=== PATIENT | male | born 1950 | race Caucasian/White ===

== ENCOUNTER 2018-05-28 16:17 | Observation (INO) | payer MEDICARE, BC ==
[2018-05-28] MEDS ORDERED: HYDROmorphone 1 MG/ML Syringe IM ONE (17:21)
--- NOTE | 2018-05-28 17:28 | EDM.PDOC ---
ED HPI GENERAL MEDICAL PROBLEM - General Chief Complaint: Lower Extremity Injury/Pain Stated Complaint: PAIN IN LEFT LEG Time Seen by Provider: 05/28/18 16:30 Source of Information: Reports: Patient, Family History Limitations: Reports: No Limitations - History of Present Illness INITIAL COMMENTS - FREE TEXT/NARRATIVE: 67-year-old male was water skiing when he injured the proximal aspect of his posterior right leg. Onset: Sudden Duration: Hour(s): (Within the last 2 hours) Location: Reports: Lower Extremity, Right Quality: Reports: Sharp, Stabbing Severity: Severe Worsens with: Reports: Other (Weightbearing), Movement Associated Symptoms: Reports: No Other Symptoms Right Leg Pain Score (Numeric/FACES): 2 - Related Data Allergies Allergy/AdvReac Type Severity Reaction Status Date / Time No Known Allergies Allergy Verified 11/04/15 07:33 Home Meds: Home Meds Cholecalciferol (Vitamin D3) [Vitamin D] 1,000 units PO DAILY 06/30/15 [History] Fish Oil/[employer]-3 Fatty Acids [Fish Oil 1,000 MG] 1,000 mg PO DAILY 06/30/15 [ History] Docusate Sodium [Colace] 100 mg PO DAILY 05/28/18 [History] Past Medical History HEENT History: Reports: Head, Impaired Vision, Other (See Below) Other HEENT History: lump off head broken nose Cardiovascular History: Reports: Blood Clots/VTE/DVT Other Cardiovascular History: 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 Gastrointestinal History: Reports: Chronic Constipation Musculoskeletal History: Reports: Fracture Hematologic History: Reports: Anticoagulation Therapy, Blood Transfusion(s) Other Hematologic History: blood tansfusion after an accident Oncologic (Cancer) History: Reports: Other (See Below) Other Oncologic History: tonsil Dermatologic History: Reports: None - Infectious Disease History Infectious Disease History: Reports: Chicken Pox, Mumps, Other (See Below) Other Infectious Disease History: tick borne disease x2 staff infection left [id number] - Past Surgical History HEENT Surgical History: Reports: Adenoidectomy, Tonsillectomy, Other (See Below) Cardiovascular Surgical History: Reports: None, Other (See Below) GI Surgical History: Reports: Colonoscopy, Hernia, Inguinal Male Surgical History: Reports: Vasectomy Musculoskeletal Surgical History: Reports: None Dermatological Surgical History: Reports: Plastic Surgical Reconstruction/Repair Social & Family History - Tobacco Use Smoking Status *Q: Never Smoker - Caffeine Use Caffeine Use: Reports: Coffee - Recreational Drug Use Recreational Drug Use: No Review of Systems - Review of Systems Review Of Systems: See Below Constitutional: Denies: Fever Respiratory: Denies: Shortness of Breath Cardiovascular: Denies: Chest Pain GI/Abdominal: Denies: Abdominal Pain Skin: Denies: Bruising Neurological: Denies: Paresthesia Psychiatric: Reports: No Symptoms ED EXAM, GENERAL - Physical Exam Exam: See Below Exam Limited By: No Limitations General Appearance: Alert, Mild Distress Respiratory/Chest: No Respiratory Distress, Lungs Clear Extremities: Other (Right lower extremity exam is abnormal. He has swelling, firmness and fullness in the proximal aspect of the right posterior hamstring area. Ligaments are intact behind the knee. No ecchymosis or bruising to this point. He is able to extend the knee without difficulty, he has intense pain with trying to flex the right leg against resistance.) Course - Vital Signs Last Recorded V/S: Last Vital Signs Temp 98.2 F 05/29/18 10:44 Pulse 54 L 05/29/18 10:44 Resp 17 05/29/18 10:44 BP 110/55 L 05/29/18 10:44 Pulse Ox 98 05/29/18 10:44 - Orders/Labs/Meds Orders: Medication Orders Cyclobenzaprine HCl (Flexeril) 10 mg PO TID PRN PRN Reason: muscle spasms Last Admin: 05/29/18 08:55 Dose: 10 mg Docusate Sodium (Colace) 100 mg PO BID PRN PRN Reason: Constipation Enoxaparin Sodium (Lovenox) 40 mg SUBCUT BEDTIME LUIS Sodium Chloride (Normal Saline) 1,000 mls @ 125 mls/hr IV ASDIRECTED LUIS Last Admin: 05/29/18 05:28 Dose: 125 mls/hr Infusion: 05/29/18 05:01 Dose: 125 mls/hr Admin: 05/28/18 21:01 Dose: 125 mls/hr Lorazepam (Ativan) 1 mg IV Q6H PRN PRN Reason: Nausea/Vomiting Melatonin (Melatonin) 6 mg PO BEDTIME PRN PRN Reason: Insomnia Morphine Sulfate (Morphine Appian Bpm Developer 150 Mg In 30 Ml) 0 mg IV ASDIRECTED PRN; Protocol PRN Reason: Pain Last Admin: 05/28/18 20:59 Dose: 150 mg Naloxone HCl (Narcan) 0.4 mg IVPUSH Q2M PRN PRN Reason: Respiratory Distress Ondansetron HCl (Zofran Odt) 4 mg PO Q6H PRN PRN Reason: Nausea able to take PO Ondansetron HCl (Zofran) 4 mg IV Q4H PRN PRN Reason: Nausea/Vomiting Trolamine Salicylate (Aspercreme 10%) 0 gm TOP Q1H PRN PRN Reason: Pain Meds: Medications Generic Name Dose Route Start Last Admin Trade Name Freq PRN Reason Stop Dose Admin Cyclobenzaprine HCl 10 mg 05/28/18 20:50 05/29/18 08:55 Flexeril PO 10 mg TID PRN Administration muscle spasms Docusate Sodium 100 mg 05/28/18 20:09 Colace PO BID PRN Constipation Enoxaparin Sodium 40 mg 05/29/18 21:00 Lovenox SUBCUT BEDTIME LUIS Sodium Chloride 1,000 mls @ 125 mls/hr 05/28/18 20:09 05/29/18 05:28 Normal Saline IV 125 mls/hr ASDIRECTED LUIS Administration Lorazepam 1 mg 05/28/18 20:09 Ativan IV Q6H PRN Nausea/Vomiting Melatonin 6 mg 05/28/18 20:09 Melatonin PO BEDTIME PRN Insomnia Morphine Sulfate 0 mg 05/28/18 20:09 05/28/18 20:59 Morphine Appian Bpm Developer 150 Mg In 30 Ml IV 150 mg ASDIRECTED PRN Administration Pain Protocol Naloxone HCl 0.4 mg 05/28/18 20:09 Narcan IVPUSH Q2M PRN Respiratory Distress Ondansetron HCl 4 mg 05/28/18 20:09 Zofran Odt PO Q6H PRN Nausea able to take PO Ondansetron HCl 4 mg 05/28/18 20:09 Zofran IV Q4H PRN Nausea/Vomiting Trolamine Salicylate 0 gm 05/29/18 07:45 Aspercreme 10% TOP Q1H PRN Pain Discontinued Medications Generic Name Dose Route Start Last Admin Trade Name Freq PRN Reason Stop Dose Admin Enoxaparin Sodium 40 mg 05/28/18 22:00 05/28/18 22:05 Lovenox SUBCUT 40 mg DAILY LUIS Administration Hydromorphone HCl 1 mg 05/28/18 17:21 05/28/18 17:25 Dilaudid IM 05/28/18 17:22 1 mg ONETIME ONE Administration - Re-Assessments/Exams Free Text/Narrative Re-Assessment/Exam: 05/28/18 18:09 Patient has a classic proximal hamstring pull or strain/tear. Six-inch Jarrett wrap were applied to the upper leg and he was given 1 mg of Dilaudid IM. 05/28/18 18:19 Symptoms improved somewhat after the Dilaudid. He was still having significant discomfort, especially when trying to bear weight or sit. He wanted to try to go home but will follow up with Prem Buenrostro on . He was given 10 Percocet to use for extra pain control, and 15 Flexeril for muscle relaxation. Continue with wrapping and ice and gradually increasing activity as tolerated. 05/28/18 18:50 Patient attempted to leave but had a significant vasovagal episode when he tried to stand. He simply was unable to leave the bed and get in a wheelchair or get into the car. He'll have to be admitted for pain control and orthopedic and physical therapy consultation over the next 24 hours. Departure - Departure Time of Disposition: 20:09 Disposition: Admitted As Inpatient 67 Condition: Fair Clinical Impression: Hamstring sprain - Discharge Information
--- NOTE | 2018-05-28 18:56 | PCM.HP ---
H&P History of Present Illness - General Date of Service: 05/28/18 Source of Information: Patient, Family ( Rosamaria) History Limitations: Reports: No Limitations - History of Present Illness Initial Comments - Free Text/Narative: 67-year-old male was water skiing when he injured the proximal aspect of his posterior right leg. Onset: Sudden 05/28/18 18:09 Patient has a classic proximal hamstring pull or strain/tear. Six-inch Jarrett wrap were applied to the upper leg and he was given 1 mg of Dilaudid IM. 05/28/18 18:19 Symptoms improved somewhat after the Dilaudid. He was still having significant discomfort, especially when trying to bear weight or sit. He wanted to try to go home but will follow up with Prem Buenrostro on . He was given 10 Percocet to use for extra pain control, and 15 Flexeril for muscle relaxation. Continue with wrapping and ice and gradually increasing activity as tolerated. 05/28/18 18:50 Patient attempted to leave but had a significant vasovagal episode when he tried to stand. He simply was unable to leave the bed and get in a wheelchair or get into the car. He'll have to be admitted for pain control and orthopedic and physical therapy consultation over the next 24 hours. Clinical Impression: Hamstring sprain - Onset of Symptoms: Reports: Sudden Duration of Symptoms: Reports: Hour(s): Location: Reports: Lower Extremity, Right Quality: Reports: Sharp, Stabbing Severity: Severe Improves with: Reports: Immobilization, Medication Worsens with: Reports: Movement Context: Reports: Trauma (fall while trying to water skii) Associated Symptoms: Reports: No Other Symptoms Right Leg Pain Score (Numeric/FACES): 2 - Related Data Allergies/Adverse Reactions: Allergies Allergy/AdvReac Type Severity Reaction Status Date / Time No Known Allergies Allergy Verified 11/04/15 07:33 Home Medications: Home Meds Cholecalciferol (Vitamin D3) [Vitamin D] 1,000 units PO DAILY 06/30/15 [History] Fish Oil/[place]-3 Fatty Acids [Fish Oil 1,000 MG] 1,000 mg PO DAILY 06/30/15 [ History] Docusate Sodium [Colace] 100 mg PO DAILY 05/28/18 [History] Past Medical History HEENT History: Reports: Head, Impaired Vision, Other (See Below) Other HEENT History: lump off head broken nose Cardiovascular History: Reports: Blood Clots/VTE/DVT Other Cardiovascular History: 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 Gastrointestinal History: Reports: Chronic Constipation Musculoskeletal History: Reports: Fracture Hematologic History: Reports: Anticoagulation Therapy, Blood Transfusion(s) Other Hematologic History: blood tansfusion after an accident Oncologic (Cancer) History: Reports: Other (See Below) Other Oncologic History: tonsil Dermatologic History: Reports: None - Infectious Disease History Infectious Disease History: Reports: Chicken Pox, Mumps, Other (See Below) Other Infectious Disease History: tick borne disease x2 staff infection left [id number] - Past Surgical History HEENT Surgical History: Reports: Adenoidectomy, Tonsillectomy, Other (See Below) Cardiovascular Surgical History: Reports: None, Other (See Below) GI Surgical History: Reports: Colonoscopy, Hernia, Inguinal Male Surgical History: Reports: Vasectomy Musculoskeletal Surgical History: Reports: None Dermatological Surgical History: Reports: Plastic Surgical Reconstruction/Repair Social & Family History - Tobacco Use Smoking Status *Q: Never Smoker - Caffeine Use Caffeine Use: Reports: Coffee - Recreational Drug Use Recreational Drug Use: No - Living Situation & Occupation Living situation: Reports: (lives with Rosamaria [address] [place], [place].) H&P Review of Systems - Review of Systems: Review Of Systems: See Below General: Reports: No Symptoms HEENT: Reports: No Symptoms, Other (hx of throat cancer 3 years ago.) Pulmonary: Reports: No Symptoms Cardiovascular: Reports: No Symptoms Gastrointestinal: Reports: No Symptoms Genitourinary: Reports: No Symptoms Musculoskeletal: Reports: No Symptoms Skin: Reports: No Symptoms Psychiatric: Reports: No Symptoms Neurological: Reports: No Symptoms Hematologic/Lymphatic: Reports: Other (hx of DVT in right legs 6 years ago. off coumadin x 3 years.) Immunologic: Reports: No Symptoms Exam - Exam Exam: See Below - Vital Signs Vital Signs: Last Vital Signs Temp 36.0 C 05/28/18 16:29 Pulse 72 05/28/18 18:25 Resp 16 05/28/18 16:29 BP 69/33 L 05/28/18 18:25 Pulse Ox 98 05/28/18 18:25 Weight: 73.936 kg - Exam General: Alert, Oriented, Cooperative HEENT: PERRLA, Conjunctiva Clear, EACs Clear, EOMI Neck: Supple, Trachea Midline, Other (left lateral neck with moderate scarring. deformity noted to left upper neck.) Lungs: Clear to Auscultation, Normal Respiratory Effort Cardiovascular: Regular Rate, Regular Rhythm, Normal S1, Normal S2 GI/Abdominal Exam: Normal Bowel Sounds, Soft, Non-Tender, Pelvis Stable (Male) Exam: Deferred Rectal (Males) Exam: Deferred Back Exam: Normal Inspection, Full Range of Motion Extremities: Leg Pain (right leg with jarrett wrap from groin to knee.), Other ( Extremities: Other (Right lower extremity exam is abnormal. He has swelling, firmness and fullness in the proximal aspect of the right posterior hamstring area. Ligaments are intact behind the knee. No ecchymosis or bruising to this point. He is able to extend the knee without difficulty, he has intense pain with trying to flex the right leg against resistance.)) Skin: Warm, Dry, Intact Neurological: Normal Speech Neuro Extensive - Mental Status: Alert, Oriented x3, Normal Mood/Affect, Normal Cognition, Memory Intact Psychiatric: Alert, Normal Affect, Normal Mood - Problem List (1) Hamstring sprain SNOMED Code(s): 158805504 ICD Code: S73.199A - OTHER SPRAIN OF UNSPECIFIED HIP, INITIAL ENCOUNTER Status: Acute Priority: High Current Visit: Yes Problem List Initiated/Reviewed/Updated: Yes Orders Last 24hrs: Active Orders 24 hr Category Date Time Status DME for Discharge [COMM] Stat Ot 05/28/18 17:58 Ordered Assessment/Plan Comment:: ASSESSMENT / PLAN 67-year-old male was water skiing when he injured the proximal aspect of his posterior right leg. Patient has a classic proximal hamstring pull or strain/tear. Six-inch Jarrett wrap were applied to the upper leg and he was given 1 mg of Dilaudid IM. Symptoms improved somewhat after the Dilaudid. He was still having significant discomfort, especially when trying to bear weight or sit. He wanted to try to go home but will follow up with Prem Buenrostro on . He was given 10 Percocet to use for extra pain control, and 15 Flexeril for muscle relaxation. Continue with wrapping and ice and gradually increasing activity as tolerated. Patient attempted to leave but had a significant vasovagal episode when he tried to stand. He simply was unable to leave the bed and get in a wheelchair or get into the car. He'll have to be admitted for pain control and orthopedic and physical therapy consultation over the next 24 hours. Right Leg Injury; Hamstring sprain -Admit to [address] [place] [address] for further monitoring -Telemetry -IV fluids for rehydration LR at 125 mL per hour -Advise to notify nurses of any chest pain or other symptoms -Pain control, COLLARETTE SEPARATOR Morphine -crutches for ambulation Maintenance issues -Orders home meds: on hold -Nutrition: Regular diet -Perez catheter not indicated at this time -DVT: Lovenox 30mg subcut -GI Prophalaxis; Protonix 40mg daily -consult to PT -consult to OT -consult to Dr.Brennen Buenrostro CODE STATUS: Full Admission status: Admit to Observation -I expect this patient to stay less than 24 hours, not to exceed 96 hours for evaluation and management of this problem. Disposition: home with Primary care provider:Dr. Villeda and Dr. Quach Oncologist Hospitalist: Dr. Aguiar
[2018-05-28] MEDS ORDERED: Morphine PF 150 MG/30 ML PCA Syringe IV PRN (20:09)
[2018-05-28] MEDS ORDERED: Ondansetron 4 MG/2 ML SDV IV PRN (20:09)
[2018-05-28] MEDS ORDERED: Melatonin 3 MG Tab PO PRN (20:09)
[2018-05-28] MEDS ORDERED: Ondansetron 4 MG Tab.DIS PO PRN (20:09)
[2018-05-28] MEDS ORDERED: Naloxone 0.4 MG/ML SDV IVPUSH PRN (20:09)
[2018-05-28] MEDS ORDERED: Docusate Sodium 100 MG Cap PO PRN (20:09)
[2018-05-28] MEDS ORDERED: LORazepam 2 MG/ML SDV IV PRN (20:09)
[2018-05-28] MEDS ORDERED: Cyclobenzaprine 10 MG Tab PO PRN (20:50)
[2018-05-28] MEDS: Sodium Chloride 0.9% 1,000 ML IV SCH (21:01)
[2018-05-28] MEDS ORDERED: Enoxaparin 40 MG/0.4 ML Syringe SUBCUT SCH (22:00)
[2018-05-29] MEDS: Sodium Chloride 0.9% 1,000 ML IV SCH (05:28)
[2018-05-29] MEDS ORDERED: Trolamine Salicylate/Aloe Vera 10% Crm 85 GM Tube TOP PRN (07:45)
[2018-05-29] MEDS ORDERED: Enoxaparin 30 MG/0.3 ML Syringe SUBCUT SCH (09:00)
--- NOTE | 2018-05-29 09:05 | PCM.CONS ---
H&P History of Present Illness - General Date of Service: 05/29/18 Admit Problem/Dx: Admission Diagnosis/Problem Admission Diagnosis/Problem Right leg injury Source of Information: Patient History Limitations: Reports: No Limitations - History of Present Illness Onset of Symptoms: Reports: Sudden Duration of Symptoms: Reports: Day(s): Location: Reports: Lower Extremity, Right Quality: Reports: Ache, Burning, Dull, Stabbing, Throbbing Improves with: Reports: Movement Worsens with: Reports: Movement Associated Symptoms: Reports: No Other Symptoms Right Leg Pain Score (Numeric/FACES): 2 - Related Data Allergies/Adverse Reactions: Allergies Allergy/AdvReac Type Severity Reaction Status Date / Time No Known Allergies Allergy Verified 11/04/15 07:33 Home Medications: Home Meds Cholecalciferol (Vitamin D3) [Vitamin D] 1,000 units PO DAILY 06/30/15 [History] Fish Oil/[place]-3 Fatty Acids [Fish Oil 1,000 MG] 1,000 mg PO DAILY 06/30/15 [ History] Docusate Sodium [Colace] 100 mg PO DAILY 05/28/18 [History] Past Medical History HEENT History: Reports: Head, Impaired Vision, Other (See Below) Other HEENT History: lump off head broken nose Cardiovascular History: Reports: Blood Clots/VTE/DVT Other Cardiovascular History: 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 Gastrointestinal History: Reports: Chronic Constipation Musculoskeletal History: Reports: Fracture Hematologic History: Reports: Anticoagulation Therapy, Blood Transfusion(s) Other Hematologic History: blood tansfusion after an accident Oncologic (Cancer) History: Reports: Other (See Below) Other Oncologic History: tonsil Dermatologic History: Reports: None - Infectious Disease History Infectious Disease History: Reports: Chicken Pox, Mumps, Other (See Below) Other Infectious Disease History: tick borne disease x2 staff infection left [id number] - Past Surgical History HEENT Surgical History: Reports: Adenoidectomy, Tonsillectomy, Other (See Below) Cardiovascular Surgical History: Reports: None, Other (See Below) GI Surgical History: Reports: Colonoscopy, Hernia, Inguinal Male Surgical History: Reports: Vasectomy Musculoskeletal Surgical History: Reports: None Dermatological Surgical History: Reports: Plastic Surgical Reconstruction/Repair Social & Family History - Tobacco Use Smoking Status *Q: Never Smoker Second Hand Smoke Exposure: No - Caffeine Use Caffeine Use: Reports: Coffee Caffeine Use Comment: 3 cups per day - Recreational Drug Use Recreational Drug Use: No - Living Situation & Occupation Living situation: Reports: (lives with Rosamaria [place] [address] [place], [place].) H&P Review of Systems - Review of Systems: Review Of Systems: See Below General: Reports: No Symptoms HEENT: Reports: No Symptoms Pulmonary: Reports: No Symptoms Cardiovascular: Reports: No Symptoms Gastrointestinal: Reports: No Symptoms Genitourinary: Reports: No Symptoms Musculoskeletal: Reports: Leg Pain Skin: Reports: No Symptoms Psychiatric: Reports: No Symptoms Neurological: Reports: No Symptoms Hematologic/Lymphatic: Reports: No Symptoms Immunologic: Reports: No Symptoms Exam - Exam Exam: See Below - Vital Signs Vital Signs: Last Vital Signs Temp 98.0 F 05/29/18 02:25 Pulse 60 05/29/18 08:41 Resp 16 05/29/18 08:41 BP 117/88 05/29/18 08:41 Pulse Ox 97 05/29/18 08:41 Weight: 163 lb - Exam General: Oriented HEENT: PERRLA, Hearing Intact, Mucosa Moist & [place], Pupils Equal, Pupils Reactive Neck: Supple, Trachea Midline Lungs: Normal Respiratory Effort Extremities: Leg Pain, Limited Range of Motion Skin: Warm, Dry, Intact Neuro Extensive - Mental Status: Alert, Oriented x3, Normal Mood/Affect, Normal Cognition, Memory Intact Psychiatric: Alert, Normal Affect, Normal Mood - Patient Data Lab Results Last 24 hrs: Laboratory Results - last 24 hr 05/28/18 05/28/18 Range/Units 20:49 21:38 WBC 9.5 (4.5-11.0) K/uL RBC 4.16 L (4.30-5.90) M/uL Hgb 13.1 (12.0-15.0) g/dL Hct 37.2 L (40.0-54.0) % MCV 89 (80-98) fL MCH 32 H (27-31) pg MCHC 35 (32-36) % Plt Count 270 (150-400) K/uL Sodium 136 L (140-148) mmol/L Potassium 3.9 (3.6-5.2) mmol/L Chloride 102 (100-108) mmol/L Carbon Dioxide 26 (21-32) mmol/L Anion Gap 11.9 (5.0-14.0) mmol/L BUN 18 (7-18) mg/dL Creatinine 1.2 (0.8-1.3) mg/dL Est Cr Clr Drug Dosing 63.32 mL/min Estimated GFR (MDRD) > 60 (>60) Glucose 114 H (74-106) mg/dL Calcium 8.5 (8.5-10.1) mg/dL Total Bilirubin 0.6 (0.2-1.0) mg/dL AST 24 (15-37) U/L ALT 25 (12-78) U/L Alkaline Phosphatase 52 (46-116) U/L Total Protein 6.2 L (6.4-8.2) g/dL Albumin 3.3 L (3.4-5.0) g/dL Globulin 2.9 (2.3-3.5) g/dL Albumin/Globulin Ratio 1.1 L (1.2-2.2) Result Diagrams: 05/28/18 21:38 05/28/18 20:49 Consult PN Assessment/Plan POD#: 0 Procedures: Procedures ASSAY OF CREATININE (05/20/15) BIOPSY/REMOVAL LYMPH NODES (07/02/15) CT SOFT TISSUE NECK W/DYE (05/20/15) DIAGNOSTIC COLONOSCOPY (11/04/15) ROUTINE VENIPUNCTURE (05/20/15) TISSUE EXAM BY PATHOLOGIST (07/02/15) US EXAM OF HEAD AND NECK (05/14/15) (1) Hamstring sprain SNOMED Code(s): 551337912 Code(s): S73.199A - OTHER SPRAIN OF UNSPECIFIED HIP, INITIAL ENCOUNTER Priority: High Current Visit: Yes Problem List Initiated/Reviewed/Updated: Yes My Orders Last 24 Hours: My Active Orders 05/29/18 07:45 Trolamine Salicylate/Aloe Vera [Aspercreme 10%] 0 gm TOP Q1H PRN Plan: assessment:right hamstring sprain Plan: I advised the patient that this is usually a tincture of time treatment. I do not recommend proximal hamstrings reconstruction with anchors. I did say that that is a possibility but it is usually performed in younger athletes. I advised him that this may take up to 4 months to heal. I advised topicals and using [id number] sleep aids for night. He is very uncomfortable sitting. I advised him that he may need to be in a recliner for some time. I've advised him that walking, elliptical, and swimming are all options. He'll probably not be able to swim for 1-2 months. I advised him that I be happy to take care of him if he had an episode with increased pain and could call my office. I will see him on an as-needed basis.
[2018-05-29 10:46] VITALS: BP 110/55
--- NOTE | 2018-05-29 12:39 | PCM.DCSUM1 ---
Discharge Summary - Hospital Course Brief History: Mr. Hernández is a 67-year-old gentleman who was admitted through the emergency department with severe pain of his right posterior thigh thought secondary to a partial tear of his hamstring. Diagnosis: Stroke: No - Discharge Data Discharge Date: 05/29/18 Discharge Disposition: Home, Self-Care 01 Condition: Fair - Discharge Diagnosis/Problem(s) (1) Tear of right hamstring SNOMED Code(s): 333857407 ICD Code: S76.311A - STRAIN MSL/FASC/TND POST GRP AT THI LEV, RIGHT THIGH, INIT Status: Acute Current Visit: Yes - Patient Summary/Data Consults: Consultations 05/28/18 20:09 Consult to Physician [CONS] Routine Consulting Provider: Prem Buenrostro Call Completed to Consulting Physician: No Reason for Consult: right hamstring injury OT Evaluation and Treatment [CONS] Routine Please Evaluate and Treat. OT Reason for Consult: Discharge Planning This query below is only for informational purposes and is not editable. PT Evaluation and Treatment [CONS] Routine Please Evaluate and Treat. PT Reason for Consult: Ambulation This query below is only for informational purposes and is not editable. Hospital Course: Patient has a classic proximal hamstring pull or strain/tear. Six-inch Jarrett wrap were applied to the upper leg and he was given 1 mg of Dilaudid IM in the emergency department. Symptoms improved somewhat after the Dilaudid. He was still having significant discomfort, especially when trying to bear weight or sit. He wanted to try to go home but will follow up with Prem Buenrostro on . He was given 10 Percocet to use for extra pain control, and 15 Flexeril for muscle relaxation. Continue with wrapping and ice and gradually increasing activity as tolerated. Patient attempted to leave but had a significant vasovagal episode when he tried to stand. He simply was unable to leave the bed and get in a wheelchair or get into the car. He'll have to be admitted for pain control and orthopedic and physical therapy consultation over the next 24 hours. On admission he was given IV pain medication as well as IV fluids for hydration. Following morning he was seen and evaluated by Dr. Servando Buenrostro from orthopedic service. He recommended conservative management and outpatient follow-up with physical therapy. The thigh was wrapped with an Jarrett wrap and he will take Tylenol as needed for pain. Avoid use of nonsteroidal therapy over the next 3-4 days because of potential for bleeding. Use ice to the area regularly. He will use and knee immobilizers that seems to help the pain significantly and a follow-up outpatient appointment has been scheduled in physical therapy. Follow-up appointment will be scheduled with primary care within 1 week. Activity will be as tolerated and he will resume his usual diet. - Patient Instructions Diet: Usual Diet as Tolerated Activity: As Tolerated Other/Special Instructions: Outpatient physical therapy as already ordered and scheduled. Please schedule follow-up appointment with primary care within 1 week. - Discharge Plan *PRESCRIPTION DRUG MONITORING PROGRAM REVIEWED*: Not Applicable *COPY OF PRESCRIPTION DRUG MONITORING REPORT IN PATIENT [place]: Not Applicable Prescriptions/Med Rec: Acetaminophen [Tylenol] 650 mg PO Q4H PRN #100 tablet PRN Reason: Pain Home Medications: Home Meds Cholecalciferol (Vitamin D3) [Vitamin D3] 1,000 units PO DAILY 06/30/15 [History ] Fish Oil/[place]-3 Fatty Acids [Fish Oil 1,000 MG] 1,000 mg PO DAILY 06/30/15 [ History] Docusate Sodium [Colace] 100 mg PO DAILY 05/28/18 [History] Acetaminophen [Tylenol] 650 mg PO Q4H PRN #100 tablet 05/29/18 [Rx] Patient Handouts: Hamstring Strain Referrals: Spencer Saldana, PT [Physical Therapist] - 06/04/18 2:30 pm - Discharge Summary/Plan Comment DC Time >30 min.: No - Patient Data Vitals - Most Recent: Last Vital Signs Temp 98.2 F 05/29/18 10:44 Pulse 54 L 05/29/18 10:44 Resp 17 05/29/18 10:44 BP 110/55 L 05/29/18 10:44 Pulse Ox 98 05/29/18 10:44 Weight - Most Recent: 163 lb I&O - Last 24 hours: Intake & Output 05/28/18 05/29/18 05/29/18 22:59 06:59 14:59 Intake Total 1211 Output Total 900 Balance 1211 -900 Lab Results - Last 24 hrs: Laboratory Results - last 24 hr 05/28/18 05/28/18 Range/Units 20:49 21:38 WBC 9.5 (4.5-11.0) K/uL RBC 4.16 L (4.30-5.90) M/uL Hgb 13.1 (12.0-15.0) g/dL Hct 37.2 L (40.0-54.0) % MCV 89 (80-98) fL MCH 32 H (27-31) pg MCHC 35 (32-36) % Plt Count 270 (150-400) K/uL Sodium 136 L (140-148) mmol/L Potassium 3.9 (3.6-5.2) mmol/L Chloride 102 (100-108) mmol/L Carbon Dioxide 26 (21-32) mmol/L Anion Gap 11.9 (5.0-14.0) mmol/L BUN 18 (7-18) mg/dL Creatinine 1.2 (0.8-1.3) mg/dL Est Cr Clr Drug Dosing 63.32 mL/min Estimated GFR (MDRD) > 60 (>60) Glucose 114 H (74-106) mg/dL Calcium 8.5 (8.5-10.1) mg/dL Total Bilirubin 0.6 (0.2-1.0) mg/dL AST 24 (15-37) U/L ALT 25 (12-78) U/L Alkaline Phosphatase 52 (46-116) U/L Total Protein 6.2 L (6.4-8.2) g/dL Albumin 3.3 L (3.4-5.0) g/dL Globulin 2.9 (2.3-3.5) g/dL Albumin/Globulin Ratio 1.1 L (1.2-2.2) Med Orders - Current: Current Medications Cyclobenzaprine HCl (Flexeril) 10 mg PO TID PRN PRN Reason: muscle spasms Last Admin: 05/29/18 08:55 Dose: 10 mg Docusate Sodium (Colace) 100 mg PO BID PRN PRN Reason: Constipation Enoxaparin Sodium (Lovenox) 40 mg SUBCUT BEDTIME LUIS Sodium Chloride (Normal Saline) 1,000 mls @ 125 mls/hr IV ASDIRECTED LUIS Last Admin: 05/29/18 05:28 Dose: 125 mls/hr Lorazepam (Ativan) 1 mg IV Q6H PRN PRN Reason: Nausea/Vomiting Melatonin (Melatonin) 6 mg PO BEDTIME PRN PRN Reason: Insomnia Morphine Sulfate (Morphine Piano Regulator Inspector 150 Mg In 30 Ml) 0 mg IV ASDIRECTED PRN; Protocol PRN Reason: Pain Last Admin: 05/28/18 20:59 Dose: 150 mg Naloxone HCl (Narcan) 0.4 mg IVPUSH Q2M PRN PRN Reason: Respiratory Distress Ondansetron HCl (Zofran Odt) 4 mg PO Q6H PRN PRN Reason: Nausea able to take PO Ondansetron HCl (Zofran) 4 mg IV Q4H PRN PRN Reason: Nausea/Vomiting Trolamine Salicylate (Aspercreme 10%) 0 gm TOP Q1H PRN PRN Reason: Pain Discontinued Medications Enoxaparin Sodium (Lovenox) 40 mg SUBCUT DAILY LUIS Last Admin: 05/28/18 22:05 Dose: 40 mg Hydromorphone HCl (Dilaudid) 1 mg IM ONETIME ONE Stop: 05/28/18 17:22 Last Admin: 05/28/18 17:25 Dose: 1 mg - Exam General: Reports: Alert, Oriented, Cooperative, Mild Distress Lungs: Reports: Clear to Auscultation, Normal Respiratory Effort Cardiovascular: Reports: Regular Rate, Regular Rhythm, No Murmurs GI/Abdominal Exam: Soft, Non-Tender, No Organomegaly, No Distention Extremities: Other (Severe pain with movement of the right leg)
[2018-05-29] MEDS ORDERED: Enoxaparin 40 MG/0.4 ML Syringe SUBCUT SCH (21:00)
== END 2018-05-29 14:11 | disposition home or self-care (01) ==
LOC: JP.ED 16:17 → JP.MS 19:36
PROVIDERS: ADMIT Hospitalist; ATTEND Hospitalist
DX: S76.311A Strain of muscle, fascia and tendon of the posterior muscle group at thigh level, right thigh, initial encounter (principal); K59.09 Other constipation; I82.401 Acute embolism and thrombosis of unspecified deep veins of right lower extremity; Z79.01 Long term (current) use of anticoagulants; Z79.899 Other long term (current) drug therapy
CPT/HCPCS: 36415; 80053; 85027; 96361; 96372; 96374; 97162; 97165; 99284; A9270; G0378; J1170; J1650; J2270; J7030

== ENCOUNTER 2020-10-01 06:19 | Day surgery (SDC) | payer MEDICARE, BC ==
[2020-10-01] MEDS ORDERED: Sodium Chloride 0.9% 1,000 ML IV SCH (07:00)
[2020-10-01] MEDS ORDERED: Midazolam 1 MG/ML 2 ML SDV ONE (07:25)
[2020-10-01] MEDS ORDERED: fentaNYL 100 MCG/2 ML SDV ONE (07:25)
[2020-10-01] MEDS ORDERED: Propofol 200 MG/20 ML SDV ONE (07:25)
[2020-10-01 08:47] VITALS: BP 132/75; PULSE 57
--- NOTE | 2020-10-01 12:43 | OR ---
DATE OF PROCEDURE: 10/01/2020 SURGEON: Carl Lane MD PROCEDURE: Colonoscopy. FINDINGS: Diverticulosis, mild. COMPLICATIONS: None. FUNERAL SERVICE PRACTITIONER/EMBALMER: None. ANESTHESIA: MAC. PREOPERATIVE DIAGNOSIS: Family history of colorectal cancer. POSTOPERATIVE DIAGNOSIS: Family history of colorectal cancer. RISKS: Risks, benefits, alternatives, and limitations including, but not limited to infection, bleeding, and perforation were explained to the patient who wished to proceed. PROCEDURE IN DETAIL: The patient was placed in a left lateral decubitus position. Digital rectal exam was performed without abnormality. Scope was introduced and advanced atraumatically through the ileocecal valve. A photo was taken of this. Scope was brought back through the ascending, transverse, descending colon, and retroflexed. Approximately 90% of the luminal surface could be seen due to the colon prep. Greater than 10 minutes was spent removing the scope. No abnormalities on retroflexion. Diverticulosis would be described as mild, limited to sigmoid colon without evidence of diverticulitis or bleeding. No evidence of colitis. The patient tolerated the procedure well. Carl Lane MD /[id number]
== END 2020-10-01 09:10 | disposition home or self-care (01) ==
LOC: JP.SDS 06:19
PROVIDERS: ATTEND Surgery
DX: Z12.11 Encounter for screening for malignant neoplasm of colon (principal); K57.30 Diverticulosis of large intestine without perforation or abscess without bleeding; Z80.0 Family history of malignant neoplasm of digestive organs
CPT/HCPCS: J2250; J2704; J3010; J7030

== ENCOUNTER 2023-06-03 09:04 | Emergency (ER) | payer MEDICARE, BC ==
[2023-06-03 09:23] VITALS: BP 141/70; PULSE 71
== END 2023-06-03 11:17 | disposition home or self-care (01) ==
LOC: JP.ED 09:04
DX: M25.561 Pain in right knee (principal); Z79.82 Long term (current) use of aspirin; Z79.899 Other long term (current) drug therapy
CPT/HCPCS: 99283

== ENCOUNTER 2024-01-01 11:35 | Emergency (ER) | payer MEDICARE, BC ==
[2024-01-01 12:28] LABS: CORONAVIRUS COVID-19 NAA NEGATIVE (NEGATIVE); INFLUENZA A NAA NEGATIVE (NEGATIVE); INFLUENZA B NAA NEGATIVE (NEGATIVE); RESPIRATORY SYNCYTIAL VIR NAA NEGATIVE (NEGATIVE)
[2024-01-01 12:50] LABS: BASOPHILS PERCENT AUTO 0.2 % (0.1-1.3); EOSINOPHILS PERCENT AUTO 0.2 % (0.0-5.4); HEMATOCRIT 40.1 % (38.4-49.7); IMMATURE GRAN PERCENT AUTO 0.3 % (0.0-0.7); LYMPHOCYTES ABSOLUTE AUTO 0.25 K/uL (0.8-3.3); MEAN CORPUSCULAR HEMOGLOBIN 30.8 pg (31.6-35.5); MEAN CORPUSCULAR HGB CONC 34.9 g/dL (31.6-35.5); MEAN CORPUSCULAR VOLUME 88.3 fL (81.4-99.0); MONOCYTES PERCENT AUTO 0.3 % (3.3-12.6); PLATELET COUNT,PLT 196 K/uL (130-375); RED BLOOD CELL COUNT 4.54 M/uL (4.14-5.76); WHITE BLOOD CELL COUNT,WBC 6.3 K/uL (3.2-11.0)
[2024-01-01 12:51] LABS: BASE EXCESS VENOUS -0.3 mm/L; BICARBONATE,VENOUS 21.4 mmol/L; CARBOXYHEMOGLOBIN 3.3 % (0.0-1.6); O2 SATURATION VENOUS 93.1; OXYHEMOGLOBIN 89.1 %; PCO2 VENOUS 28.3 mm/Hg; PO2 VENOUS 60.1 mm/Hg; TOTAL HEMOGLOBIN 14.5 g/dL (13.5-18.0)
[2024-01-01 12:54] LABS: BASOPHILS ABSOLUTE AUTO 0.01 K/uL (0.00-0.10); EOSINOPHILS ABSOLUTE AUTO 0.01 K/uL (0.00-0.40); IMMATURE GRAN ABSOLUTE AUTO 0.02 K/uL (0.00-0.23); MONOCYTES ABSOLUTE AUTO 0.02 K/uL (0.20-0.90)
[2024-01-01] MEDS: Sodium Chloride 0.9% 1,000 ML IV ONE (13:06)
[2024-01-01 13:15] LABS: ALANINE AMINOTRANSFERASE,ALT 18 U/L (12-78); ALKALINE PHOSPHATASE 60 U/L (46-116); ASPARTATE AMNIOTRANSFERASE,AST 16 U/L (15-37); BILIRUBIN TOTAL 1.1 mg/dL (0.2-1.0); BLOOD UREA NITROGEN,BUN 21 mg/dL (7-18); CALCIUM 7.9 mg/dL (8.5-10.1); CARBON DIOXIDE,CO2 25 mmol/L (21-32); CHLORIDE,CL 103 mmol/L (100-108); CREATININE 1.3 mg/dL (0.8-1.3); EST CRCL DRUG DOSING (CG) 54.71 mL/min; ESTIMATED GFR 58 mL/min (>60); GLUCOSE RANDOM 111 mg/dL (74-106); POTASSIUM,K 3.6 mmol/L (3.6-5.2); PROTEIN TOTAL,TP 6.1 g/dL (6.4-8.2); SODIUM,NA 136 mmol/L (140-148)
[2024-01-01 13:17] LABS: ANION GAP 11.6 mmol/L (5.0-14.0)
[2024-01-01 13:19] LABS: TROPONIN I HIGH SENSITIVITY 7.1 pg/mL (<=60.3)
[2024-01-01] MEDS: Sodium Chloride 0.9% 10 ML Syringe FLUSH PRN (14:01)
[2024-01-01] MEDS: Iopamidol 755 Mg/ML 100 ML Bottle IV SCH (14:01)
[2024-01-01] MEDS: Sodium Chloride 0.9% 100 ML IV ONE (14:01)
[2024-01-01] MEDS: cefTRIAXone 1 GM in Sodium Chloride 0.9% 50 ML IV ONE (14:12)
[2024-01-01 15:33] LABS: APPEARANCE,URINE CLEAR (CLEAR); BILIRUBIN,URINE NEGATIVE (NEGATIVE); GLUCOSE,URINE NEGATIVE (NEGATIVE); KETONES,URINE 15 mg/dL (NEGATIVE); LEUKOCYTE ESTERASE,URINE NEGATIVE (NEGATIVE); NITRITE,URINE NEGATIVE (NEGATIVE); OCCULT BLOOD,URINE NEGATIVE (NEGATIVE); PROTEIN,URINE TRACE mg/dL (NEGATIVE); UROBILINOGEN,URINE 0.2 EU/dL (0.2-1.0)
[2024-01-01 15:37] LABS: COLOR,URINE OTHER (YELLOW)
[2024-01-01 15:40] LABS: AMORPHOUS SEDIMENT,URINE FEW; BACTERIA,URINE RARE; EPITHELIAL CELLS,URINE RARE; MUCUS,URINE MODERATE; RBC,URINE 0-5 (0-5); WBC,URINE 0-5 (0-5)
[2024-01-01 15:48] VITALS: BP 103/59; PULSE 76
== END 2024-01-01 15:59 | disposition home or self-care (01) ==
LOC: JP.ED 11:35
DX: J18.9 Pneumonia, unspecified organism (principal); E86.0 Dehydration; Z79.82 Long term (current) use of aspirin
CPT/HCPCS: 0241U; 36415; 71045; 71275; 80053; 81001; 82803; 83605; 83690; 84145; 84484; 85025; 85379; 87040; 87077; 87186; 93005; 93010; 96361; 96365; 99284; 99285; J0696; J3490; J7030; Q9967

== ENCOUNTER 2024-01-02 10:45 | Inpatient (IN) | payer MEDICARE, BC ==
[2024-01-02 12:05] LABS: BASOPHILS PERCENT AUTO 0.1 % (0.1-1.3); EOSINOPHILS PERCENT AUTO 0.1 % (0.0-5.4); HEMATOCRIT 38.1 % (38.4-49.7); IMMATURE GRAN ABSOLUTE AUTO 0.08 K/uL (0.00-0.23); IMMATURE GRAN PERCENT AUTO 0.8 % (0.0-0.7); LYMPHOCYTES ABSOLUTE AUTO 0.39 K/uL (0.8-3.3); LYMPHOCYTES PERCENT AUTO 3.8 % (11.4-47.7); MEAN CORPUSCULAR HEMOGLOBIN 30.4 pg (31.6-35.5); MEAN CORPUSCULAR HGB CONC 34.1 g/dL (31.6-35.5); MONOCYTES ABSOLUTE AUTO 0.42 K/uL (0.20-0.90); MONOCYTES PERCENT AUTO 4.1 % (3.3-12.6); NEUTROPHILS ABSOLUTE AUTO 9.46 K/uL (1.0-7.6); NEUTROPHILS PERCENT AUTO 91.1 % (40.0-78.1); PLATELET COUNT,PLT 170 K/uL (130-375); RED BLOOD CELL COUNT 4.28 M/uL (4.14-5.76); WHITE BLOOD CELL COUNT,WBC 10.4 K/uL (3.2-11.0)
[2024-01-02 12:06] LABS: BASOPHILS ABSOLUTE AUTO 0.01 K/uL (0.00-0.10); EOSINOPHILS ABSOLUTE AUTO 0.01 K/uL (0.00-0.40)
[2024-01-02 12:35] LABS: A/G RATIO 0.9 (1.2-2.2); ALANINE AMINOTRANSFERASE,ALT 17 U/L (12-78); ALBUMIN 2.7 g/dL (3.4-5.0); ALKALINE PHOSPHATASE 46 U/L (46-116); ANION GAP 10.9 mmol/L (5.0-14.0); ASPARTATE AMNIOTRANSFERASE,AST 14 U/L (15-37); BILIRUBIN TOTAL 0.6 mg/dL (0.2-1.0); BLOOD UREA NITROGEN,BUN 19 mg/dL (7-18); C-REACTIVE PROTEIN 24.65 mg/dL (<0.50); CALCIUM 7.6 mg/dL (8.5-10.1); CARBON DIOXIDE,CO2 25 mmol/L (21-32); CHLORIDE,CL 100 mmol/L (100-108); CREATININE 1.3 mg/dL (0.8-1.3); EST CRCL DRUG DOSING (CG) 54.71 mL/min; ESTIMATED GFR 58 mL/min (>60); GLUCOSE RANDOM 149 mg/dL (74-106); POTASSIUM,K 3.9 mmol/L (3.6-5.2); PROTEIN TOTAL,TP 5.8 g/dL (6.4-8.2); SODIUM,NA 132 mmol/L (140-148)
[2024-01-02] MEDS: Sodium Chloride 0.9% 10 ML Syringe FLUSH PRN (12:36)
[2024-01-02 12:39] LABS: LACTIC ACID 1.3 mmol/L (0.4-2.0)
[2024-01-02] MEDS ORDERED: fentaNYL 250 MCG/5 ML SDV ONE (13:02)
[2024-01-02] MEDS ORDERED: Ondansetron 4 MG/2 ML SDV ONE (13:03)
[2024-01-02] MEDS ORDERED: Neostigmine Methylsulfate 10 MG/10 ML MDV ONE (13:03)
[2024-01-02] MEDS ORDERED: Dexamethasone 4 MG/ML SDV ONE (13:03)
[2024-01-02] MEDS ORDERED: Rocuronium 50 MG/5 ML Vial ONE (13:03)
[2024-01-02] MEDS ORDERED: Glycopyrrolate 0.2 MG/ML 5 ML MDV ONE (13:03)
[2024-01-02] MEDS ORDERED: Propofol 200 MG/20 ML SDV ONE (13:03)
[2024-01-02] MEDS ORDERED: Succinylcholine 200 MG/10 ML MDV ONE (13:03)
[2024-01-02] MEDS ORDERED: hydrOXYzine HCL 100 MG/2 ML SDV IM PRN (13:04)
[2024-01-02] MEDS ORDERED: Zolpidem 5 MG Tab PO PRN (13:04)
[2024-01-02] MEDS ORDERED: Docusate Sodium 100 MG Cap PO PRN (13:04)
[2024-01-02] MEDS ORDERED: Acetaminophen/HYDROcodone 325-5 MG Tab PO PRN (13:04)
[2024-01-02] MEDS: Ropivacaine 40 ML, dexAMETHasone 8 MG, EPINEPHrine 0.4 MG, Sodium Chloride 0.9% 37.6 ML NERVRT SCH (13:46)
[2024-01-02] MEDS: Bupivacaine 0.5% 50 ML MDV ONE (13:57)
[2024-01-02] MEDS: Piperacillin/Tazobactam 3.375 GM in Sodium Chloride 0.9% 50 ML IV SCH (14:00)
[2024-01-02 18:10] LABS: APPEARANCE,URINE CLEAR (CLEAR); BILIRUBIN,URINE NEGATIVE (NEGATIVE); COLOR,URINE YELLOW (YELLOW); GLUCOSE,URINE NEGATIVE (NEGATIVE); KETONES,URINE TRACE mg/dL (NEGATIVE); LEUKOCYTE ESTERASE,URINE NEGATIVE (NEGATIVE); NITRITE,URINE NEGATIVE (NEGATIVE); OCCULT BLOOD,URINE SMALL (NEGATIVE); PH,URINE 6.5 (5.0-8.0); PROTEIN,URINE 30 mg/dL (NEGATIVE); UROBILINOGEN,URINE 0.2 EU/dL (0.2-1.0)
[2024-01-02 18:17] LABS: AMORPHOUS SEDIMENT,URINE NOT SEEN; BACTERIA,URINE FEW; EPITHELIAL CELLS,URINE FEW; MUCUS,URINE RARE; RBC,URINE 0-5 (0-5)
[2024-01-02] MEDS: Piperacillin/Tazobactam/Dext 3.375 GM in Premix Bag 1 BAG IV SCH (19:29)
[2024-01-02] MEDS: Benzocaine/Cetylpyridinium/Menthol Lozenge MUCMEM PRN (19:35)
[2024-01-02] MEDS ORDERED: Acetaminophen 650 MG Supp RECTAL PRN (19:47)
[2024-01-02] MEDS: Sodium Chloride 0.9% 1,000 ML IV ONE (19:55)
[2024-01-02] MEDS: Acetaminophen 325 MG Tab PO PRN (20:25)
[2024-01-03 05:00] LABS: HEMATOCRIT 37.2 % (38.4-49.7); HEMOGLOBIN 12.6 g/dL (12.9-16.9); IMMATURE GRAN ABSOLUTE AUTO 0.03 K/uL (0.00-0.23); IMMATURE GRAN PERCENT AUTO 0.3 % (0.0-0.7); LYMPHOCYTES ABSOLUTE AUTO 0.37 K/uL (0.8-3.3); LYMPHOCYTES PERCENT AUTO 3.6 % (11.4-47.7); MEAN CORPUSCULAR HEMOGLOBIN 30.1 pg (31.6-35.5); MEAN CORPUSCULAR HGB CONC 33.9 g/dL (31.6-35.5); MONOCYTES ABSOLUTE AUTO 0.31 K/uL (0.20-0.90); NEUTROPHILS ABSOLUTE AUTO 9.46 K/uL (1.0-7.6); NEUTROPHILS PERCENT AUTO 93.1 % (40.0-78.1); PLATELET COUNT,PLT 158 K/uL (130-375); RED BLOOD CELL COUNT 4.18 M/uL (4.14-5.76); WHITE BLOOD CELL COUNT,WBC 10.2 K/uL (3.2-11.0)
[2024-01-03 05:53] LABS: CALCIUM 7.8 mg/dL (8.5-10.1); CREATININE 1.1 mg/dL (0.8-1.3); EST CRCL DRUG DOSING (CG) 64.39 mL/min; POTASSIUM,K 4.6 mmol/L (3.6-5.2)
[2024-01-03 05:54] LABS: ANION GAP 8.6 mmol/L (5.0-14.0)
[2024-01-04] MEDS: Ciprofloxacin in D5W 400 MG in Premix Bag 1 BAG IV SCH (14:26)
[2024-01-05 11:29] VITALS: BP 128/85; PULSE 83
== END 2024-01-05 13:00 | disposition home or self-care (01) | DRG 397 ==
LOC: JP.ED 10:45 → JP.SDS 13:02 → JP.ICU 13:04 → OBSVTOIN 01-03 11:52 → JP.MS 01-04 18:00
PROVIDERS: ADMIT Surgery; ATTEND Hospitalist
PROC: 0DTJ4ZZ Resection of Appendix, Percutaneous Endoscopic Approach (ICD-10-PCS; principal; 2024-01-03)
DX: K35.30 Acute appendicitis with localized peritonitis, without perforation or gangrene (principal); J15.69 Pneumonia due to other Gram-negative bacteria; R78.81 Bacteremia; E86.0 Dehydration; K59.09 Other constipation; Z85.818 Personal history of malignant neoplasm of other sites of lip, oral cavity, and pharynx; Z79.82 Long term (current) use of aspirin; Z87.81 Personal history of (healed) traumatic fracture; Z90.89 Acquired absence of other organs; Z98.890 Other specified postprocedural states; Z79.899 Other long term (current) drug therapy; Z86.718 Personal history of other venous thrombosis and embolism; Z79.01 Long term (current) use of anticoagulants; Z98.52 Vasectomy status
CPT/HCPCS: 36415 ×2; 74176 ×2; 80048; 80053; 81001; 83605; 83690; 85025 ×2; 86140; 87070; 87075; 87077; 87186; 87205; 93005; 93010; 96365; 96376; 99285 ×2; A9270 ×2; G0378 ×3; J0171; J0330; J1100 ×2; J2405; J2543 ×4; J2704; J2710; J2795; J3010; J3490 ×5; 88304; 99222; 99231; 99232; 99238; J0744